=== PATIENT | male | born 1980 | race American Indian/Alaskan Native ===

== ENCOUNTER 2017-07-22 21:03 | Inpatient (IN) | payer OTHER ==
[2017-07-22 21:41] LABS: Basophils % (Auto) 0.3 % (0.0-1.8); Eosinophils % (Auto) 0.2 % (0.0-4.3); Hematocrit 43.4 % (35.5-45.6); Hemoglobin 13.5 gm/dl (11.8-15.2); Mean Corpuscular HGB Conc 31 % (32-34); Mean Corpuscular Volume 77 fl (84-94); Platelet Count 222 K/mm3 (140-440); Red Blood Count 5.63 M/mm3 (3.65-5.03); Red Cell Distribution Width 13.5 % (13.2-15.2); White Blood Count 8.6 K/mm3 (4.5-11.0)
[2017-07-22 21:46] LABS: Mean Corpuscular Hemoglobin 24 pg (28-32)
[2017-07-22 21:59] LABS: Anion Gap 18 mmol/L; BUN/Creatinine Ratio 15; Blood Urea Nitrogen 12 mg/dL (9-20); Calcium 9.1 mg/dL (8.4-10.2); Carbon Dioxide 24 mmol/L (22-30); Glucose 114 mg/dL (75-100); Potassium 3.6 mmol/L (3.6-5.0); Sodium 139 mmol/L (137-145)
[2017-07-23] MEDS ORDERED: NITRO-BID 2% TP ONE (06:38)
[2017-07-23] MEDS ORDERED: ZOFRAN IV ONE (06:38)
[2017-07-23] MEDS ORDERED: MORPHINE IV ONE (06:38)
[2017-07-23] MEDS ORDERED: ASPIRIN PO ONE (06:39)
--- NOTE | 2017-07-23 06:43 | Emergency Department Report ---
HPI - General Chief Complaint: Chest Pain Time Seen by Provider: 07/23/17 06:29 - [facility] HPI: Room 8 The patient is a 37-year-old male presenting with a chief complaint of chest pain. The patient states last night after awakening he stated he began to feel "bad." Patient states he felt "shaky" and developed shortness of breath with substernal chest tightness. Patient also admitted to pleurisy and states he felt lightheaded and near syncopal but never actually lost consciousness. The patient states his chest pain has been constant and feels as though there is "something laying on "his chest. The patient currently gets his pain score 4-5/ 10. The patient states she's never had a stress test or cardiac catheterization. 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 and recently drove in from [facility] Location: Substernal chest Duration: Constant since last night Quality: Tightness Severity: 5/10 Modifying factors: [see above] Context: [see above] Mode of transportation: The patient drove himself to the ED ED Past Medical Hx - Past Medical History Previous Medical History?: Yes Additional medical history: scoliosis,disc - Surgical History Additional Surgical History: Left upper extremity fracture repair - Family History Family history: no significant - Social History Smoking Status: Never Smoker Substance Use Type: None (denies illicit drug use), Alcohol (occasional) - Medications Home Medications: Home Medications Medication Instructions Recorded Confirmed Last Taken Type No Known Home Medications [No 07/23/17 07/23/17 Unknown History Reported Home Medications] ED Review of Systems ROS: Stated complaint: CHEST PAIN SOB Other details as noted in HPI Comment: All other systems reviewed and negative Constitutional: denies: chills, fever Eyes: denies: eye pain, eye discharge, vision change ENT: denies: ear pain, throat pain Respiratory: shortness of breath, other (pleurisy) Cardiovascular: chest pain Endocrine: no symptoms reported Gastrointestinal: denies: abdominal pain, nausea, diarrhea Genitourinary: denies: urgency, dysuria Musculoskeletal: denies: back pain, joint swelling, arthralgia Skin: denies: rash, lesions Neurological: other (near syncope) Psychiatric: denies: anxiety, depression Hematological/Lymphatic: denies: easy bleeding, easy bruising Physical Exam - Physical Exam Vital Signs: Vital Signs 07/22/17 07/23/1717 21:17 03:21 04:15 Temperature 98.9 F 97.7 F Pulse Rate 92 H 73 65 Respiratory 20 16 18 Rate Blood Pressure 144/92 Blood Pressure 141/93 122/92 [Left] O2 Sat by Pulse 98 97 97 Oximetry 07/23/17 05:00 Temperature Pulse Rate 78 Respiratory 16 Rate Blood Pressure Blood Pressure 122/78 [Left] O2 Sat by Pulse 99 Oximetry Physical Exam: GENERAL: The patient is well-developed well-nourished male lying on stretcher not appearing to be in acute distress. [] HEENT: Normocephalic. Atraumatic. Extraocular motions are intact. Patient has moist mucous membranes. NECK: Supple. Trachea midline CHEST/LUNGS: Clear to auscultation. There is no respiratory distress noted. HEART/CARDIOVASCULAR: Regular. There is no tachycardia. There is no gallop rub or murmur. ABDOMEN: Abdomen is soft, nontender. Patient has normal bowel sounds. There is no abdominal distention. SKIN: There is no rash. There is no edema. There is no diaphoresis. NEURO: The patient is awake, alert, and oriented. The patient is cooperative. The patient has normal speech MUSCULOSKELETAL: There is no calf tenderness. There is no evidence of acute injury. ED Course Vital Signs 07/22/17 07/23/17 07/23/17 21:17 03:21 04:15 Temperature 98.9 F 97.7 F Pulse Rate 92 H 73 65 Respiratory 20 16 18 Rate Blood Pressure 144/92 Blood Pressure 141/93 122/92 [Left] O2 Sat by Pulse 98 97 97 Oximetry 07/23/17 05:00 Temperature Pulse Rate 78 Respiratory 16 Rate Blood Pressure Blood Pressure 122/78 [Left] O2 Sat by Pulse 99 Oximetry ED Medical Decision Making - Lab Data Result diagrams: 07/22/17 21:24 07/22/17 21:24 Laboratory Tests 07/22/17 07/22/17 07/23/17 21:24 21:24 00:12 WBC 8.6 RBC 5.63 H Hgb 13.5 Hct 43.4 MCV 77 L MCH 24 L MCHC 31 L RDW 13.5 Plt Count 222 Lymph % (Auto) 26.9 [place] % (Auto) 6.0 Eos % (Auto) 0.2 Baso % (Auto) 0.3 Lymph # 2.3 [place] # 0.5 Eos # 0.0 Baso # 0.0 Seg Neutrophils % 66.6 Seg Neutrophils # 5.7 Sodium 139 Potassium 3.6 Chloride 101.0 Carbon Dioxide 24 Anion Gap 18 BUN 12 Creatinine 0.8 Estimated GFR > 60 BUN/Creatinine Ratio 15 Glucose 114 H Calcium 9.1 Troponin T < 0.010 < 0.010 07/23/17 03:38 WBC RBC Hgb Hct MCV MCH MCHC RDW Plt Count Lymph % (Auto) [place] % (Auto) Eos % (Auto) Baso % (Auto) Lymph # [place] # Eos # Baso # Seg Neutrophils % Seg Neutrophils # Sodium Potassium Chloride Carbon Dioxide Anion Gap BUN Creatinine Estimated GFR BUN/Creatinine Ratio Glucose Calcium Troponin T < 0.010 - EKG Data -: EKG Interpreted by Me EKG shows normal: sinus rhythm Rate: normal - EKG Data When compared to previous EKG there are: previous EKG unavailable Interpretation: nonspecific ST-T wave malissa (T-wave inversions in leads 3 and aVF) - Radiology Data Radiology results: report reviewed (CT chest), image reviewed (chest x-ray, CT chest) interpreted by me: Chest x-ray-no focal of trays, no pneumothorax CT chest (read by radiologist) no evidence of PE - Differential Diagnosis ACS, PE, pneumonia, pleurisy, GERD, pericarditis Critical care attestation.: If time is entered above; I have spent that time in minutes in the direct care of this critically ill patient, excluding procedure time. ED Disposition Clinical Impression: Chest pain, T wave inversion in EKG Disposition: -09 OP ADMIT IP TO THIS HOSP Is pt being admited?: Yes Does the pt Need Aspirin: Yes Condition: Fair Instructions: Chest Pain (ED) Referrals: PRIMARY CARE, [Primary Care Provider] - 3-5 Days Time of Disposition: 08:57 (hospitalist paged)
[2017-07-23] MEDS ORDERED: NACL ONE (07:39)
--- NOTE | 2017-07-23 08:18 | XRay Report ---
CHEST 2 VIEWS INDICATION: Chest pain, shortness of breath. COMPARISON: None similar at this institution. FINDINGS: PA and lateral chest radiographs demonstrate normal cardiomediastinal silhouette. Clear lungs. Intact bones. CONCLUSION: No acute disease in the chest. Thank you for the opportunity to participate in this patient's care.
--- NOTE | 2017-07-23 08:51 | Cat Scan Report ---
CTA CHEST INDICATION: Chest pain, shortness of breath, pleurisy. COMPARISON: None similar. FINDINGS: Chest CTA performed following intravenous administration of 100 cc of Omnipaque 350. Rotational MIP's also obtained. Normal heart size. No effusions. No aortic aneurysm, dissection or suspicious pulmonary arterial filling defects. No size significant adenopathy. Normal airway. Unremarkable thyroid. Slight bibasilar scarring. Otherwise unremarkable lungs. Nonspecific distal esophageal wall prominence/thickening, not excluded for gastroesophageal reflux and/or hiatal hernia, amongst others. Images through included upper abdomen reveal no significant abnormality. Slight mid and lower thoracic spine degenerative spurring. CONCLUSION: No CT evidence of pulmonary embolism with few other findings, as above. Thank you for the opportunity to participate in this patient's care.
[2017-07-23] MEDS ORDERED: MORPHINE IV PRN (10:09)
[2017-07-23] MEDS ORDERED: DULCOLAX PR PRN (10:09)
[2017-07-23] MEDS ORDERED: NITROSTAT SL PRN (10:11)
[2017-07-23] MEDS ORDERED: ZOFRAN IV PRN (10:12)
--- NOTE | 2017-07-23 10:17 | History and Physical Report ---
<SARA SEGAL - Last Filed: 07/24/17 07:14> History of Present Illness Date of examination: 07/23/17 Date of admission: 07/23/2017 Chief complaint: Chest pain History of present illness: Patient is a 37-year-old black male with no past medical history who, presenting with a chief complaint of chest pain. He states that the pain began yesterday intermittent left side chest pain. The pain was located over his substerna area .Patient described the pain as, pressure and squeezing in his chest; non-radiating.There is no aggravating or reliving factors. The painful episodes did not increase in intensity or severity during this time. Patient rated his pain level 5/10 at present time. He denies nausea , vomiting during these episodes of pain. Patient reported diaphoresis including feeling lightheadedness and dizziness.He denies shortness of breath, and vomiting during these episodes of pain. He continued to have several episodes of the pain throughout the night and this morning while he was pumping gas in his car, he felt lightheaded and near syncopal but never actually lost consciousness. After this episode he drove to the emergency department. The patient states he never had a stress test or cardiac catheterization before. Past History Past Medical History: No medical history Past Surgical History: No surgical history Social history: denies: smoking, alcohol abuse Family history: diabetes, hypertension Medications and Allergies Allergies Allergy/AdvReac Type Severity Reaction Status Date / Time No Known Allergies Allergy Verified 07/23/17 08:40 Home Medications Medication Instructions Recorded Confirmed Last Taken Type No Known Home Medications [No 07/23/17 07/23/17 Unknown History Reported Home Medications] Active Meds: Active Medications Acetaminophen (Tylenol) 650 mg PO Q4H PRN PRN Reason: Pain MILD(1-3)/Fever >100.5/AL Aspirin (Aspirin) 325 mg PO DAILY OMID Bisacodyl (Dulcolax) 10 mg CO QDAY PRN PRN Reason: Constipation unrelieved by MOM Enoxaparin Sodium (Lovenox) 40 mg SUB-Q QDAY OMID Morphine Sulfate (Morphine) 2 mg IV Q4H PRN PRN Reason: Pain, Moderate (4-6) Nitroglycerin (Nitrostat) 0.4 mg SL .Q5MIN PRN PRN Reason: Chest Pain Ondansetron HCl (Zofran) 4 mg IM Q4H PRN PRN Reason: Nausea And Vomiting Review of Systems Constitutional: no weight loss, no weight gain, no fever, no chills Ears, nose, mouth and throat: no tinnitis, no decreased hearing, no nose pain, no nasal congestion, no nasal discharge Cardiovascular: chest pain, lightheadedness, shortness of breath Respiratory: no cough with sputum, no excessive sputum, no hemoptysis, no shortness of breath Gastrointestinal: no diarrhea, no constipation, no change in bowel habits Genitourinary Male: no discharge, no urinary frequency, no urinary hesitancy, no nocturia Musculoskeletal: no neck stiffness, no neck pain, no shooting arm pain, no arm numbness/tingling, no low back pain Integumentary: no sores, no wounds, no jaundice, no boils Neurological: no parathesias, no numbness, no tingling, no seizures Psychiatric: no hypersomnia, no change in appetite, no change in libido, no suicidal ideation Endocrine: no polyphagia, no excessive thirst, no polydipsia, no polyuria, no nocturia Hematologic/Lymphatic: no easy bruising, no easy bleeding Allergic/Immunologic: no urticaria, no allergic rhinitis Exam - Constitutional Vitals: Temp Pulse Resp BP Pulse Ox 97.7 F 68 15 118/75 98 07/23/17 03:21 07/23/17 09:35 07/23/17 08:23 07/23/17 09:35 07/23/17 09:35 General appearance: Present: no acute distress - EENT Eyes: Present: PERRL ENT: hearing intact - Neck Neck: Present: supple - Respiratory Respiratory effort: normal Respiratory: bilateral: CTA - Cardiovascular Rhythm: regular Heart Sounds: Present: S1 & S2 - Extremities Extremities: no ischemia Peripheral Pulses: within normal limits - Abdominal General gastrointestinal: Present: soft, non-tender Male genitourinary: Present: deferred - Rectal Rectal Exam: deferred - Integumentary Integumentary: Present: clear, warm, dry - Musculoskeletal Musculoskeletal: strength equal bilaterally - Psychiatric Psychiatric: appropriate mood/affect - Allied Health Allied health notes reviewed: nursing Results - Labs CBC & Chem 7: 07/22/17 21:24 07/22/17 21:24 Labs: Laboratory Last Values WBC 8.6 K/mm3 (4.5-11.0) 07/22/17 21:24 RBC 5.63 M/mm3 (3.65-5.03) H 07/22/17 21:24 Hgb 13.5 gm/dl (11.8-15.2) 07/22/17 21:24 Hct 43.4 % (35.5-45.6) 07/22/17:24 MCV 77 fl (84-94) L 07/22/17:24 MCH 24 pg (28-32) L 07/22/17:24 MCHC 31 % (32-34) L 07/22/17:24 RDW 13.5 % (13.2-15.2) 07/22/17:24 Plt Count 222 K/mm3 (140-440) 07/22/17 21:24 Lymph % (Auto) 26.9 % (13.4-35.0) 07/22/17:24 [place] % (Auto) 6.0 % (0.0-7.3) 07/22/17 21:24 Eos % (Auto) 0.2 % (0.0-4.3) 07/22/17:24 Baso % (Auto) 0.3 % (0.0-1.8) 07/22/17 21:24 Lymph # 2.3 K/mm3 (1.2-5.4) 07/22/17 21:24 [place] # 0.5 K/mm3 (0.0-0.8) 07/22/17:24 Eos # 0.0 K/mm3 (0.0-0.4) 07/22/17 21:24 Baso # 0.0 K/mm3 (0.0-0.1) 07/22/17:24 Seg Neutrophils % 66.6 % (40.0-70.0) 07/22/17:24 Seg Neutrophils # 5.7 K/mm3 (1.8-7.7) 07/22/17 21:24 Sodium 139 mmol/L (137-145) 07/22/17 21:24 Potassium 3.6 mmol/L (3.6-5.0) 07/22/17:24 Chloride 101.0 mmol/L (98-107) 07/22/17 21:24 Carbon Dioxide 24 mmol/L (22-30) 07/22/17 21:24 Anion Gap 18 mmol/L 07/22/17 21:24 BUN 12 mg/dL (9-20) 07/22/17 21:24 Creatinine 0.8 mg/dL (0.8-1.5) 07/22/17 21:24 Estimated GFR > 60 ml/min 07/22/17 21:24 BUN/Creatinine Ratio 15 % 07/22/17 21:24 Glucose 114 mg/dL (75-100) H 07/22/17 21:24 Calcium 9.1 mg/dL (8.4-10.2) 07/22/17 21:24 Troponin T < 0.010 ng/mL (0.00-0.029) 07/23/17 03:38 - Imaging and Cardiology Chest x-ray: image reviewed (unremarkable) CT scan - chest: image reviewed (evidence of pulmonary embolism) Assessment and Plan Assessment and plan: Patient is a 37-year-old black male with no past medical history who, presenting with a chief complaint of chest pain. He states that the pain began yesterday intermittent left side chest pain. The pain was located over his substerna area .Patient described the pain as, pressure and squeezing in his chest; non-radiating. chest x-ray-no focal infiltrates, no pneumothorax. CTA no evidence of pulmonary embolism. Cardiac enzyme negative 3. EKG Normal Sinus rhythm no ST elevation or T-wave inversion Chest Pain We will admit to telemetry floor. EKG normal sinus rate [address] elevation or T-wave inversion. We will get another EKG ordered for a changes that have taken since the first one obtained Negative cardiac enzyme X3 Start on aspirin Nitroglycerin when necessary Morphine ordered for pain Stress test ordered. Cardiology evaluation DVT prophylaxis Lovenox Advance Directives: Yes VTE prophylaxis?: Chemical Contraindication Mechanical VTE Prophylaxis: Treatment Not Indicated Plan of care discussed with patient/family: Yes <BERNICE HERNANDEZ - Last Filed: 07/24/17 07:22> History of Present Illness Date of admission: 07/23/17 10:09 Medications and Allergies Active Meds: Active Medications Acetaminophen (Tylenol) 650 mg PO Q4H PRN PRN Reason: Pain MILD(1-3)/Fever >100.5/AL Last Admin: 07/23/17 20:06 Dose: 650 mg Aspirin (Aspirin) 325 mg PO DAILY OMID Bisacodyl (Dulcolax) 10 mg CO QDAY PRN PRN Reason: Constipation unrelieved by MOM Enoxaparin Sodium (Lovenox) 40 mg SUB-Q QDAY OMID Morphine Sulfate (Morphine) 2 mg IV Q4H PRN PRN Reason: Pain, Moderate (4-6) Nitroglycerin (Nitrostat) 0.4 mg SL .Q5MIN PRN PRN Reason: Chest Pain Ondansetron HCl (Zofran) 4 mg IV Q4H PRN PRN Reason: Nausea And Vomiting Exam - Constitutional Vitals: Temp Pulse Resp BP Pulse Ox 97.5 F L 56 L 20 115/72 98 07/24/17 05:03 07/24/17 05:03 07/24/17 05:03 07/24/17 05:03 07/24/17 05:03 Results - Labs CBC & Chem 7: 07/24/17 02:04 07/24/17 02:04 Labs: Laboratory Last Values WBC 6.7 K/mm3 (4.5-11.0) 07/24/17 02:04 RBC 5.29 M/mm3 (3.65-5.03) H 07/24/17 02:04 Hgb 12.9 gm/dl (11.8-15.2) 07/24/17 02:04 Hct 40.5 % (35.5-45.6) 07/24/17 02:04 MCV 77 fl (84-94) L 07/24/17 02:04 MCH 25 pg (28-32) L 07/24/17 02:04 MCHC 32 % (32-34) 07/24/17 02:04 RDW 13.7 % (13.2-15.2) 07/24/17 02:04 Plt Count 215 K/mm3 (140-440) 07/24/17 02:04 Lymph % (Auto) 34.9 % (13.4-35.0) 07/24/17 02:04 [place] % (Auto) 9.4 % (0.0-7.3) H 07/24/17 02:04 Eos % (Auto) 1.9 % (0.0-4.3) 07/24/17 02:04 Baso % (Auto) 0.4 % (0.0-1.8) 07/24/17 02:04 Lymph # 2.4 K/mm3 (1.2-5.4) 07/24/17 02:04 [place] # 0.6 K/mm3 (0.0-0.8) 07/24/17 02:04 Eos # 0.1 K/mm3 (0.0-0.4) 07/24/17 02:04 Baso # 0.0 K/mm3 (0.0-0.1) 07/24/17 02:04 Seg Neutrophils % 53.4 % (40.0-70.0) 07/24/17 02:04 Seg Neutrophils # 3.6 K/mm3 (1.8-7.7) 07/24/17 02:04 Sodium 139 mmol/L (137-145) 07/24/17 02:04 Potassium 4.2 mmol/L (3.6-5.0) 07/24/17 02:04 Chloride 100.2 mmol/L (98-107) 07/24/17 02:04 Carbon Dioxide 28 mmol/L (22-30) 07/24/17 02:04 Anion Gap 15 mmol/L 07/24/17 02:04 BUN 13 mg/dL (9-20) 07/24/17 02:04 Creatinine 1.0 mg/dL (0.8-1.5) 07/24/17 02:04 Estimated GFR > 60 ml/min 07/24/17 02:04 BUN/Creatinine Ratio 13 % 07/24/17 02:04 Glucose 101 mg/dL (75-100) H 07/24/17 02:04 Hemoglobin A1c 5.8 % (4-6) 07/24/17 02:04 Calcium 8.8 mg/dL (8.4-10.2) 07/24/17 02:04 Troponin T < 0.010 ng/mL (0.00-0.029) 07/23/17 03:38 Assessment and Plan Assessment and plan: I saw and evaluated the patient. I agree with the findings and the plan of care as documented in the Nurse Practitioner's~note, with the following corrections and additions.
[2017-07-23] MEDS: TYLENOL PO PRN ×2 (10:23→20:06)
[2017-07-24 02:25] LABS: Basophils % (Auto) 0.4 % (0.0-1.8); Eosinophils % (Auto) 1.9 % (0.0-4.3); Hematocrit 40.5 % (35.5-45.6); Hemoglobin 12.9 gm/dl (11.8-15.2); Mean Corpuscular HGB Conc 32 % (32-34); Mean Corpuscular Volume 77 fl (84-94); Platelet Count 215 K/mm3 (140-440); Red Blood Count 5.29 M/mm3 (3.65-5.03); Red Cell Distribution Width 13.7 % (13.2-15.2); White Blood Count 6.7 K/mm3 (4.5-11.0)
[2017-07-24 02:31] LABS: Mean Corpuscular Hemoglobin 25 pg (28-32)
[2017-07-24 02:35] LABS: Anion Gap 15 mmol/L; BUN/Creatinine Ratio 13; Blood Urea Nitrogen 13 mg/dL (9-20); Calcium 8.8 mg/dL (8.4-10.2); Carbon Dioxide 28 mmol/L (22-30); Chloride 100.2 mmol/L (98-107); Glucose 101 mg/dL (75-100); Potassium 4.2 mmol/L (3.6-5.0); Sodium 139 mmol/L (137-145)
[2017-07-24] MEDS: ASPIRIN PO SCH (10:55)
[2017-07-24] MEDS: LOVENOX SUB-Q SCH (10:55)
--- NOTE | 2017-07-24 20:30 | Progress Note ---
Assessment and Plan -Chest pain: Negative serial cardiac enzymes . On oxygen, ASA, metoprolol, NTG, morphine. Had Stress thallium today awaiting result - Abnormal EKG suggestive of ischemic changes. Contineu with above delfina nd f/u with stress thallium result - DVT PPX with lovenox dn GI woth pepcid Disposition: D/c home if Stress thallium is normal Subjective Date of service: 07/24/17 Principal diagnosis: chest pain, prediabetic Interval history: Chest pain improving Objective - Constitutional Vitals: Vital Signs - 12hr 07/24/17 11:40 Temperature 97.4 F L Pulse Rate 79 Respiratory 18 Rate Blood Pressure 131/84 [Left] O2 Sat by Pulse 97 Oximetry General appearance: Present: no acute distress, well-nourished - EENT Eyes: PERRL, EOM intact - Neck Neck: supple, normal ROM - Respiratory Respiratory effort: normal Respiratory: left: other, bilateral: CTA - Breasts Breasts: normal - Cardiovascular Rhythm: regular Heart Sounds: Present: S1 & S2. Absent: gallop, rub Extremities: pulses intact, No edema, normal color, Full ROM - Gastrointestinal General gastrointestinal: Present: soft, non-tender, non-distended, normal bowel sounds - Integumentary Integumentary: clear, warm, dry - Musculoskeletal Musculoskeletal: 1, strength equal bilaterally - Neurologic Neurologic: moves all extremities - Psychiatric Psychiatric: memory intact, appropriate mood/affect, intact judgment & insight - Labs CBC & Chem 7: 07/24/17 02:04 07/24/17 02:04 Labs: Abnormal lab results 07/24/17 07/24/17 Range/Units 02:04 02:04 RBC 5.29 H (3.65-5.03) M/mm3 MCV 77 L (84-94) fl MCH 25 L (28-32) pg [place] % (Auto) 9.4 H (0.0-7.3) % Glucose 101 H (75-100) mg/dL
[2017-07-24] MEDS: TYLENOL PO PRN (23:22)
--- NOTE | 2017-07-25 02:25 | Treadmill Report ---
MYOCARDIAL PERFUSION SCAN Resting images revealed good uptake of radioisotope throughout the myocardium. On post-stress myocardial perfusion images revealed similar radioisotope uptake activity. Gated scan revealed normal ejection fraction of 58%. No segmental motion abnormality noted. There is no evidence of transient ischemic dilatation. Right ventricle was normal. IMPRESSION: 1. This test is negative for ischemia. 2. EKG was also normal with a stress test, completing 10 minutes 45 seconds on Demetri protocol. JOB# [id number] KR/NTS
[2017-07-25 04:51] VITALS: BP 129/77
--- NOTE | 2017-07-25 10:04 | Discharge Summary ---
Providers - Providers Date of Admission: 07/23/17 10:09 Date of discharge: 07/25/17 Attending physician: BERNICE HERNANDEZ none Primary care physician: MANAGER PLACEMENT Hospitalization Reason for admission: chest pain Condition: Fair Pertinent studies: Stress thallium that was negative Procedures: none Hospital course: History of present illness: Patient is a 37-year-old black male with no past medical history who, presenting with a chief complaint of chest pain. He states that the pain began yesterday intermittent left side chest pain. The pain was located over his substerna area .Patient described the pain as, pressure and squeezing in his chest; non-radiating.There is no aggravating or reliving factors. The painful episodes did not increase in intensity or severity during this time. Patient rated his pain level 5/10 at present time. He denies nausea , vomiting during these episodes of pain. Patient reported diaphoresis including feeling lightheadedness and dizziness.He denies shortness of breath, and vomiting during these episodes of pain. He continued to have several episodes of the pain throughout the night and this morning while he was pumping gas in his car, he felt lightheaded and near syncopal but never actually lost consciousness. After this episode he drove to the emergency department. The patient states he never had a stress test or cardiac catheterization before. Disposition: DC-01 TO HOME OR SELFCARE Core Measure Documentation - Palliative Care Palliative Care/ Comfort Measures: Not Applicable - Core Measures Any of the following diagnoses?: none Exam - Constitutional Vitals: Temp Pulse Resp BP Pulse Ox 98.3 F 61 17 129/77 98 07/25/17 04:41 07/25/17 04:41 07/25/17 04:41 07/25/17 04:41 07/25/17 04:41 General appearance: Present: no acute distress, well-nourished - EENT Eyes: Present: PERRL - Neck Neck: Present: supple, normal ROM - Respiratory Respiratory effort: normal Respiratory: bilateral: CTA - Cardiovascular Heart Sounds: Present: S1 & S2. Absent: rub, click - Extremities Extremities: pulses symmetrical, No edema Peripheral Pulses: within normal limits - Abdominal General gastrointestinal: Present: soft, non-tender, non-distended, normal bowel sounds Male genitourinary: Present: normal - Integumentary Integumentary: Present: clear, warm, dry - Musculoskeletal Musculoskeletal: gait normal, strength equal bilaterally - Psychiatric Psychiatric: appropriate mood/affect, intact judgment & insight - Neurologic Neurologic: CNII-XII intact, moves all extremities Plan Activity: advance as tolerated Diet: regular, diabetic Follow up with: PRIMARY CARE,MD [Primary Care Provider] - 3-5 Days Prescriptions: Aspirin [Aspirin TAB] 325 mg PO DAILY #81 tablet
[2017-07-25] MEDS: ASPIRIN PO SCH (10:08)
[2017-07-25] MEDS: LOVENOX SUB-Q SCH (10:08)
== END 2017-07-25 12:37 | disposition home or self-care (01) | DRG 206 ==
LOC: ED 21:03 → 4A 07-23 10:09
PROVIDERS: ADMIT Family Medicine; ATTEND Family Medicine
DX: M94.0 Chondrocostal junction syndrome [Tietze] (principal); Z87.81 Personal history of (healed) traumatic fracture; Z83.3 Family history of diabetes mellitus; Z82.49 Family history of ischemic heart disease and other diseases of the circulatory system
CPT/HCPCS: 36415; 71020; 71275; 78452; 80048; 83036; 84484; 85025; 93005; 93010; 93017; 96374; 96375; A9502; J1650; J2270; J2405; Q9967